=== PATIENT | male | born 1935 | race Hispanic/Latino ===

== ENCOUNTER 2016-07-23 08:30 | Outpatient (CLI) | payer MEDICARE ==
--- NOTE | 2016-07-23 12:33 | Cat Scan Report ---
CT ABDOMEN AND PELVIS WITHOUT CONTRAST INDICATION: Prostate cancer. COMPARISON: 10/12/2014 FINDINGS: Abdomen and pelvis CT performed following oral contrast only. LUNG BASES: Small pericardial fluid/thickening anteriorly measuring 1.2 cm AP again noted, axial image 16, series 2. Small coronary calcification. Mild left more than right basilar scarring. ABDOMEN: Please note that sensitivity to detect small visceral lesions is limited due to the absence of intravenous contrast. Minimal dependent density in the gallbladder may again represent slight cholelithiasis/sludge. Liver, spleen, pancreas, adrenals, IVC and opacified colon within normal limits. Nonopacified small bowel evaluation limited, though grossly nonobstructive. No ascites or size significant adenopathy. Small infrarenal abdominal aortic focal ectasia/fusiform borderline aneurysm estimated at 3 cm AP x 2.5 cm transverse again seen as on axial image 165, series 2. Kidneys again nonhydronephrotic bilaterally with mild perinephric stranding. Few small calcifications bilaterally may be vascular, though not excluded for a 4 mm calculus on the left, axial image 112. Numerous bilateral renal lesions again noted, some hyperdense/hemorrhagic cysts while others hypodense/simple cysts. The largest of these lesions in the left mid to lower renal aspect again approximately 2 cm as on axial images 147 and 156. Also, a 1.3 cm left upper renal cortical now hyperdense/hemorrhagic cyst on image 106 appeared hypodense previously. PELVIS: Approximately 4 cm AP x 5.6 cm transverse prostate creates an impression at the bladder base and maybe correlated for clinically and with PSA. Otherwise grossly unremarkable non-opacified urinary bladder and seminal vesicles. Mild distal descending colon and proximal sigmoid diverticulosis. Mild to moderate rectosigmoid stool. No free fluid or significant adenopathy. Small, approximately 1.8 cm diameter fat containing bilateral inguinal hernias. Approximately 7 mm anterolisthesis of L5 over S1 with bilateral L5 pars defects and severe L5-S1 disc narrowing with vacuum phenomenon. Demineralized bones. Additional spinal degenerative spurring, greatest lower thoracic. Bilateral SI joint degenerative bridging with partial joint space obliteration on the right as well. CONCLUSION: 1. No acute CT abnormality or significant interval change with bilateral renal cysts again noted, some with hemorrhagic transformation. 2. Various other findings, including cholelithiasis, left renal calcification, infrarenal aortic ectasia/borderline aneurysm, diverticulosis, enlarged prostate and small pericardial effusion, amongst others, as described. Thank you for the opportunity to participate in this patient's care.
--- NOTE | 2016-07-23 14:14 | Nuclear Medicine Report ---
BONE SCAN: History: Prostate cancer: Comparison: CT abdomen pelvis without contrast performed the same day. After injection of isotope, gamma camera imaging of the bony system was done. There is a normal uptake of isotope throughout the bony structures without areas of significantly increased or decreased uptake. Normal uptake in the urinary system is seen. IMPRESSION: Negative bone scan.
== END 2016-07-23 08:31 | disposition home or self-care (01) ==
LOC: NM 08:30
PROVIDERS: ATTEND Urology
DX: C61 Malignant neoplasm of prostate (principal); I77.811 Abdominal aortic ectasia; N28.89 Other specified disorders of kidney and ureter; N20.0 Calculus of kidney; K57.30 Diverticulosis of large intestine without perforation or abscess without bleeding; K40.90 Unilateral inguinal hernia, without obstruction or gangrene, not specified as recurrent; N40.0 Benign prostatic hyperplasia without lower urinary tract symptoms; I31.3 Pericardial effusion (noninflammatory)
CPT/HCPCS: 74176; 78306; A9503

== ENCOUNTER 2016-09-06 11:44 | Day surgery (SDC) | payer MEDICARE ==
--- NOTE | 2016-08-28 10:58 | Admit Criteria Form ---
Admission Criteria Documentation: AMBULATORY SURGERY EXCEPTION CRITERIA Ambulatory Surgery Exception Criteria ( Place 'X' for any and all applicable criteria): Surgery or procedure performed on ambulatory basis may require inpatient stay for[A] ANY ONE of the following(1)(2)(3)(4)(5)(6)(7)(8)(9): [X] I. A preoperative situation, condition, or finding that warrants inpatient stay as indicated by ANY ONE of the following: [X] a) Inpatient care needed because of severity of a disease or condition rather than the surgery (eg, severe cardiac or respiratory disease, severe infection) (15) (16 ) (17) (18) [] b) Emergent procedure (eg, angioplasty for acute ischemia)(19) [] c) Complex surgical approach or situation as indicated by ANY ONE of the following(3): [] i) Open approach needed instead of usual endoscopic, transcatheter, or other less invasive procedure [] ii) Difficult approach because of previous operation [] iii) Airway monitoring required after open neck procedures(20)(21) [] iv) Large mass requiring unusually extensive dissection [] v) Additional complicating feature requiring inpatient care (eg, drain management)(22(23): [] d) Major surgery in a pt with high anesthetic risk as indicated by ANY ONE of the following (2)(3)(5)(7)(8): [] i) ASA risk class III or higher (severe systemic disease impairing function) [D] [] ii) Advanced age (eg, older than 85 years)(14)(24) [] iii) Symptomatic heart failure(25) [] iv) Symptomatic asthma or COPD(8)(21) [] v) Morbid obesity with hemodynamic or respiratory problems(20)( 21)(26)(27) [] vi) Obstructive sleep apnea(20)(21) [] vii) Former premature infants who are younger than 60 weeks [] viii) High risk for severe postoperative abnormalities (eg, severe postoperative hypocalcemia after parathyroidectomy for severe hyperparathyroidism)(27)( 28) [] ix) Unstable angina(25) [] e) Drug-related risk requiring inpatient stay as indicated by ANY ONE of the following(5)(10)(14)(32)(33) [] i) Procedure requires discontinuing drugs or other therapy (eg , antiarrhythmic medication, antiseizure medication), which necessitates inpatient observation or treatment.(18)(31) [] ii) Major surgery and high risk drug use as indicated by ANY ONE of the following: [] 1) Active abuse of cocaine or similar drug [] 2) Monoamine oxidase inhibitor use [] 3) Other drug identified as posing risk [] f) Inadequate outpatient care situation as indicated by ANY ONE of the following(5)(10)(14)(32)(33) [] i) Patient lives remote from medical facility and procedure has urgent complication potential, and temporary nearby residence cannot be arranged [] ii) Patient will have postprocedure incapacitation and inadequate assistance at home, or alternative level of care cannot be arranged. [] iii) Patient will have long general anesthesia or procedure side effect resolution time, and competent person to stay with patient on first postoperative night at home or alternative level of care cannot be arranged. []iv) Other inadequate outpatient situation that cannot be handled by other means [] II. A perioperative event, condition, or finding that warrants inpatient stay as indicated by ANY ONE of the following (1)(2)(3): [] a) Inadequate physiologic recovery: cardiovascular, respiratory, or hemodynamic status not normal or near preoperative baseline(18) [] b) Hemodynamic instability [] c) Patient not alert with near normal or baseline mental status [] d) Temperature not normal or as expected and not appropriate for outpatient treatment of condition [] e) Ambulatory or appropriate activity level status not yet achieved post procedure [E](34)(35)(36) [] f) Operative site not appropriate (eg, unexpected or excessive drainage or bleeding) [] g) Postoperative effects not resolved or adequately managed (eg, significant pain or vomiting not appropriate for outpatient or next level of care)(10)(12) [] h) Complicating features requiring inpatient care as indicated by ANY ONE of the following(37): [] i) Severe complications of procedure (eg, bowel injury, airway compromise, vascular injury,severe hemorrhage) [] ii) Extensive (eg, dissection far beyond usual scope of procedure ) or prolonged (eg, 120 minutes beyond usual) surgery needed requiring inpatient postoperative care [] iii) Conversion to an open or complex procedure that requires inpatient care (eg, open vs laparoscopic cholecystectomy, abdominal vs vaginal hysterectomy)(38) [] iv) Comorbid condition or test result identified during or post procedure that requires inpatient care (7) [] v) Malignant hyperthermia(30) [] vi) Other complicating feature requiring inpatient care(22)(23) Inpatient stay may be needed until ALL of the following are present (1)(2)(3)(4) (5)(6)(10)(14)(33)(40): []a) Physiologic recovery: cardiovascular, respiratory, and hemodynamic status normal or near preoperative baseline []b) Hemodynamic stability []c) Patient alert, with near normal or baseline mental status []d) Temperature appropriate: patient afebrile or temperature appropriate for outpt treatment of condition []e) Activity level appropriate: ambulatory or appropriate activity level post procedure []f) Operative site appropriate as indicated by ALL of the following: []i) Site dry or with expected drainage []ii) Any blood noted is as expected for procedure. []g) Postoperative effects resolved or managed as indicated by ALL of the following: []i) Pain management appropriate for outpatient (or next level of) care(10) []ii) Minimal nausea and vomiting: if present, successfully treated with oral medication(12) []iii) Headache, dizziness, or drowsiness (if present) are mild. []h) Voiding status acceptable as indicated by ANY ONE of the following: []i) Voiding spontaneously []ii) No voiding but instructions given for follow-up in 6 to 8 hours []iii) Urinary catheter in place, and instructions given for follow-up []i) Complicating features requiring inpatient care manageable at a lower level of care(37) []j) Comorbid conditions manageable at a lower level of care(37) The original [employer] content created by [employer] has been revised. The portions of the content which have been revised are identified through the use of italic text or in bold, and [employer] has neither reviewed nor approved the modified material. All other unmodified content is copyright [employer]. Please see references footnoted in the original [employer] edition 2016
[2016-09-05 09:53] LABS: Basophils % (Auto) 0.5 % (0.0-1.8); Eosinophils % (Auto) 1.5 % (0.0-4.3); Hematocrit 43.7 % (35.5-45.6); Hemoglobin 14.1 gm/dl (11.8-15.2); Mean Corpuscular HGB Conc 32 % (32-34); Mean Corpuscular Hemoglobin 30 pg (28-32); Mean Corpuscular Volume 92 fl (84-94); Platelet Count 292 K/mm3 (140-440); Red Blood Count 4.73 M/mm3 (3.65-5.03); Red Cell Distribution Width 14.5 % (13.2-15.2); White Blood Count 9.5 K/mm3 (4.5-11.0)
[2016-09-05 10:10] LABS: Alanine Aminotransferase 14 units/L (7-56); Albumin 3.3 g/dL (3.9-5); Albumin/Globulin Ratio 1.1 %; Alkaline Phosphatase 86 units/L (35-129); Anion Gap 16 mmol/L; Blood Urea Nitrogen 12 mg/dL (9-20); Calcium 8.7 mg/dL (8.4-10.2); Carbon Dioxide 27 mmol/L (22-30); Chloride 104.1 mmol/L (98-107); Glucose 85 mg/dL (75-100); Potassium 5.2 mmol/L (3.6-5.0); Sodium 142 mmol/L (137-145); Total Protein 6.2 g/dL (6.3-8.2)
--- NOTE | 2016-09-05 10:14 | Anesthesia Consultation ---
Anesthesia Consult and Med Hx Date of service: 09/05/16 - Airway Anesthetic Teeth Evaluation: Poor (bottom), Edentulous (upper) ROM Head & Neck: Adequate Mental/Hyoid Distance: Adequate Mallampati Class: Class II Intubation Access Assessment: Probably Good - Pulmonary Exam CTA: No (expiratory rhonchii) - Cardiac Exam Anesthetic Concerns: cardiac clearence - Pre-Operative Health Status ASA Pre-Surgery Classification: ASA3 Proposed Anesthetic Plan: General, Spinal - Pre-Anesthesia Comment Pre-Anesthesia Comments: off of coumadin for 7 days, stopped 08/29. - Pulmonary Hx Smoking: Yes (1 1/2PPD X 50YRS-NOW RARE SMOKER) Hx Asthma: Yes (ORDERED TO WEAR O2 AT ALL TIMES,BUT DOES NOT) SOB: Yes (USES INHALERS) COPD: Yes ( DAILY STEROIDS) Hx Pneumonia: Yes (HX) - Cardiovascular System Hx Hypertension: Yes (2008) Hx Cardia Arrhythmia: Yes (Afib) - Central Nervous System Hx Psychiatric Problems: No - Other Systems Hx Cancer: Yes (prostate)
[2016-09-05 10:17] LABS: INR 0.98 (0.87-1.13)
[2016-09-05 10:18] LABS: Partial Thromboplastin Time 25.2 Sec. (24.2-36.6)
[~2016-09-06 11:44] MED LIST: ANCEF/STERILE WATER 2 GM/20 ML 2 GM/20 ML SYRINGE IV NR; NACL 0.9% 1000 ML 1,000 ML IV SCH; PEPCID PO NR
[2016-09-06] MEDS ORDERED: NEO SYNEPHRINE/NS Syringe(OR USE) IV ONE (12:00)
[2016-09-06] MEDS ORDERED: NACL BACTERIOSTATIC INFILTRATI ONE (12:27)
[2016-09-06] MEDS ORDERED: DIPRIVAN 10 MG/ML IV ONE (12:35)
[2016-09-06] MEDS ORDERED: DILAUDID ONE (12:35)
[2016-09-06] MEDS ORDERED: ZOFRAN ONE (12:35)
[2016-09-06] MEDS ORDERED: XYLOCAINE MPF 2% ONE (12:35)
[2016-09-06] MEDS ORDERED: DECADRON ONE (12:35)
[2016-09-06] MEDS ORDERED: PROAIR IH NR (12:46)
[2016-09-06] MEDS ORDERED: DILAUDID IV PRN (12:47)
[2016-09-06] MEDS ORDERED: ZOFRAN IV PRN (12:47)
--- NOTE | 2016-09-06 12:47 | Anesthesia Day of Surgery ---
Anesthesia Day of Surgery - Day of Surgery Patient Examined: Yes Patient H&P Reviewed: Yes Patient is NPO: Yes Cardiac Clearance: Yes
[2016-09-06] MEDS ORDERED: ANCEF/STERILE WATER 2 GM/20 ML IV NR (14:00)
--- NOTE | 2016-09-06 15:06 | Post Operative Note ---
Date of procedure: 09/06/16 Pre-op diagnosis: CAP Post-op diagnosis: same Findings: as above 42 grams Procedure: cysto cryoablation prostate Anesthesia: GETA Surgeon: MARTA ABDULLAHI Estimated blood loss: minimal Pathology: none Condition: stable Disposition: PACU
--- NOTE | 2016-09-06 15:08 | Discharge Summary ---
Short Stay Discharge Plan Activity: other (no straining ) Weight Bearing Status: Full Weight Bearing Diet: low fat, low cholesterol, low salt, diabetic Wound: other (ice packs to perineun in RR and 24 hrs po ) Durable Medical Equipment Needed Upon Discharge: other (harp care ) Follow up with: MILADY LOUIS MD [Primary Care Provider] - 7 Days MARTA ABDULLAHI MD [Staff Physician] - 7 Days
[2016-09-06] MEDS ORDERED: NACL 0.9% 1000 ML 1,000 ML ONE (15:13)
[2016-09-06] MEDS ORDERED: LASIX ONE (15:20)
[2016-09-06] MEDS ORDERED: WATER FOR IRRIG STERILE IR ONE (15:30)
[2016-09-06] MEDS ORDERED: NACL 0.9% IR ONE (15:30)
[2016-09-06] MEDS ORDERED: VERSED ONE (15:42)
--- NOTE | 2016-09-06 16:12 | Operative Report ---
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 PROCEDURE: Cystoscopy, cryosurgical ablation of prostate. SURGEON: Ramos Enciso MD ANESTHESIA: General. FINDINGS: This is a gentleman with low volume disease. He has positive biopsies at right lateral apex and some atypical cells on the left, now presents for ablation. All risks and complications were discussed. DESCRIPTION OF PROCEDURE: The patient was brought to the operating room and placed on the operating table. Following induction of anesthesia, placed in lithotomy position, prepped and draped in usual sterile fashion. De Jesus catheter was easily placed. The ultrasound grading probe was placed and excellent visualization was obtained. The prostate measured approximately 40 grams. At this point, the probing calculated was placed and we used six probes, the probes were checked. At this point, we measured the gland and measured the length and posteriorly with approximately ____ 3.3 cm, but anteriorly and mid gland was approximately 4 cm. Probes 1 and 2 were placed. Denonvilliers fascia and external sphincter was placed in excellent position. Probes 5 and 6 and 3 and 4 were placed without difficulty. The patient tolerated the procedure well. An excellent freeze was accomplished, we had excellent ice. Denonvilliers was dropped approximately 20. Thaw was accomplished and second freeze was obtained after we rechecked probe. The patient tolerated the procedure well. Second freeze was accomplished. Second thaw was accomplished. The patient tolerated the procedure well. A 20-25 minutes warming was kept in place and a #20 coude catheter was placed. It should be noted that prior to the freeze, we did flexible cystoscopy, we placed the rigid wire and under direct vision with ultrasound, we placed a warmer which was checked throughout the procedure, which was intact. The patient tolerated the procedure well. No complications. De Jesus catheter was draining brought to recovery in stable condition. JOB# [id number] ALINA/YOGESH
[2016-09-06 18:02] VITALS: BP 106/62
[2016-09-06] MEDS ORDERED: TRIPLE ANTIBIOTIC TP SCH (22:00)
== END 2016-09-06 17:57 | disposition home or self-care (01) ==
LOC: OR 11:44
PROVIDERS: ATTEND Urology
DX: C61 Malignant neoplasm of prostate (principal); F17.210 Nicotine dependence, cigarettes, uncomplicated; J44.9 Chronic obstructive pulmonary disease, unspecified; I48.2 Chronic atrial fibrillation; E78.5 Hyperlipidemia, unspecified; I10 Essential (primary) hypertension; Z79.899 Other long term (current) drug therapy; Z87.01 Personal history of pneumonia (recurrent); Z98.890 Other specified postprocedural states
CPT/HCPCS: 36415; 55873; 80053; 85025; 85610; 85730; A4217; C2618; J0690; J1100; J1170; J1940; J2250; J2370; J2405; J2704; J7030

== ENCOUNTER 2017-07-18 18:22 | Inpatient (IN) | payer MEDICARE ==
[2017-07-18 18:51] LABS: Basophils % (Auto) 0.1 % (0.0-1.8); Eosinophils % (Auto) 0.1 % (0.0-4.3); Hematocrit 39.1 % (35.5-45.6); Hemoglobin 12.3 gm/dl (11.8-15.2); Lymphocytes # (Auto) 1.4 K/mm3 (1.2-5.4); Lymphocytes % (Auto) 7.1 % (13.4-35.0); Mean Corpuscular HGB Conc 31 % (32-34); Mean Corpuscular Hemoglobin 28 pg (28-32); Mean Corpuscular Volume 90 fl (84-94); Monocytes # (Auto) 1.2 K/mm3 (0.0-0.8); Platelet Count 562 K/mm3 (140-440); Red Blood Count 4.36 M/mm3 (3.65-5.03)
[2017-07-18 19:06] LABS: BUN/Creatinine Ratio 24; Blood Urea Nitrogen 24 mg/dL (9-20); Calcium 8.8 mg/dL (8.4-10.2); Hemolysis Index 3
[2017-07-18] MEDS ORDERED: PROVENTIL IH ONE (21:22)
[2017-07-18] MEDS ORDERED: ATROVENT IH ONE (21:22)
--- NOTE | 2017-07-18 21:28 | Emergency Department Report ---
HPI - General Chief Complaint: Dyspnea/Respdistress Time Seen by Provider: 07/18/17 21:11 - HPI HPI: Room 25 The patient is an 82-year-old male presenting with a chief complaint of pneumonia. The patient states he's had shortness of breath and productive cough for years but over the past 2 weeks she's had a poor appetite. The patient states he went to see his primary physician and had a chest x-ray performed today which revealed a pneumonia. Patient was subsequently sent to the ED for further management. Patient denies any history of fever nausea or vomiting. Location: [See above] Duration: [See above] Quality: [See above] Severity: Moderate Modifying factors: [see above] Context: [see above] Mode of transportation: [not driving] ED Past Medical Hx - Past Medical History Hx Hypertension: Yes (2008) Hx GERD: Yes Hx Arthritis: Yes Hx Asthma: Yes (ORDERED TO WEAR O2 AT ALL TIMES,BUT DOES NOT) Hx COPD: Yes ( DAILY STEROIDS) - Family History Family history: no significant - Social History Smoking Status: Current Some Day Smoker - Medications Home Medications: Home Medications Medication Instructions Recorded Confirmed Last Taken Type Advair Diskus 250-50 mcg 2 puff IH BID 01/10/15 08/30/16 01/09/15 History Diltiazem ER 240 mg PO DAILY 01/10/15 09/06/16 09/06/16 10:30 History Omeprazole 20 mg PO DAILY 01/10/15 09/06/16 09/06/16 10:30 History Pravastatin 20 mg PO DAILY 01/10/15 09/06/16 09/06/16 10:30 History ProAir HFA Inhaler 1 puff IH Q4HR PRN 01/10/15 09/06/16 09/05/16 22:00 History Warfarin [Coumadin] 5 mg PO DAILY 02/23/15 09/06/16 08/28/16 History Albuterol Sulfate [Albuterol 0.63% 1 dose INHALATION DAILY 08/30/16 09/06/16 21:00 History NEBS] Brimonidine/Timolol 0.2-0.5% 1 drops OU BID 08/30/16 09/06/16 09/05/16 History [Combigan 0.2-0.5%] Prednisone [predniSONE] 2.5 mg PO Q48HR 08/30/16 09/06/16 09/06/16 10:30 History Tiotropium [Spiriva] 1 puff IH DAILY 08/30/16 09/06/16 09/05/16 History predniSONE [Deltasone] 5 mg PO Q48HR 08/30/16 09/06/16 09/05/16 History ED Review of Systems ROS: Stated complaint: SHORT OF BREATH Other details as noted in HPI Constitutional: denies: fever Respiratory: cough, shortness of breath Gastrointestinal: other (anorexia). denies: nausea, vomiting Physical Exam - Physical Exam Vital Signs: Vital Signs 07/18/17 18:26 Temperature 99.3 F Pulse Rate 99 H Respiratory 30 H Rate Blood Pressure 155/136 O2 Sat by Pulse 90 Oximetry Physical Exam: GENERAL: The patient is well-developed well-nourished male sitting on stretcher not appearing to be in acute distress. [] HEENT: Normocephalic. Atraumatic. Extraocular motions are intact. Patient has moist mucous membranes. NECK: Supple. Trachea midline CHEST/LUNGS: Occasional rhonchi and rare faint expiratory wheeze. There is no respiratory distress noted. HEART/CARDIOVASCULAR: Regular. There is no tachycardia. There is no gallop rub or murmur. ABDOMEN: Abdomen is soft, nontender. Patient has normal bowel sounds. There is no abdominal distention. SKIN: There is no rash. There is no diaphoresis. NEURO: The patient is awake, alert, and oriented. The patient is cooperative. The patient has normal speech MUSCULOSKELETAL:There is no evidence of acute injury. ED Course Vital Signs 07/18/17 18:26 Temperature 99.3 F Pulse Rate 99 H Respiratory 30 H Rate Blood Pressure 155/136 O2 Sat by Pulse 90 Oximetry ED Medical Decision Making - Lab Data Result diagrams: 07/18/17 18:32 07/18/17 18:32 Laboratory Tests 07/18/17 07/18/17 18:32 18:32 WBC 20.0 H RBC 4.36 Hgb 12.3 Hct 39.1 MCV 90 MCH 28 MCHC 31 L RDW 16.0 H Plt Count 562 H Lymph % (Auto) 7.1 L [place] % (Auto) 6.0 Eos % (Auto) 0.1 Baso % (Auto) 0.1 Lymph # 1.4 [place] # 1.2 H Eos # 0.0 Baso # 0.0 Seg Neutrophils % 86.7 H Seg Neutrophils # 17.4 H Sodium 143 Potassium 5.5 H Chloride 103.7 Carbon Dioxide 27 Anion Gap 18 BUN 24 H Creatinine 1.0 Estimated GFR > 60 BUN/Creatinine Ratio 24 Glucose 91 Calcium 8.8 - Radiology Data Radiology results: image reviewed (chest x-ray) interpreted by me: Chest x-ray-right middle lobe consolidation - Differential Diagnosis pneumonia Critical care attestation.: If time is entered above; I have spent that time in minutes in the direct care of this critically ill patient, excluding procedure time. ED Disposition Clinical Impression: Pneumonia, Cough, Shortness of breath Disposition: DC-09 OP ADMIT IP TO THIS HOSP Is pt being admited?: Yes Does the pt Need Aspirin: Yes Condition: Fair Instructions: Bacterial Pneumonia (ED) Time of Disposition: 21:30 (hospitalist paged (Dr Ledbetter))
[2017-07-18] MEDS ORDERED: ZOSYN/NS 4.5GM/100ML 4.5 GM/100 ML VIAL IV ONE (22:00)
[2017-07-18] MEDS ORDERED: KIONEX PO STA (22:36)
[2017-07-18] MEDS ORDERED: TYLENOL PO PRN (22:37)
[2017-07-18] MEDS ORDERED: NACL 0.9% 1000 ML 2,000 ML IV ONE (22:42)
[2017-07-18] MEDS ORDERED: NACL 0.9% 1000 ML 2,000 ML ONE (22:59)
[2017-07-18] MEDS ORDERED: KIONEX ONE (23:07)
--- NOTE | 2017-07-18 23:40 | XRay Report ---
FINAL REPORT PROCEDURE: XR CHEST ROUTINE 2V TECHNIQUE: PA and lateral chest radiographs were obtained. CPT 56216 HISTORY: Shortness of breath COMPARISON: No prior studies are available for comparison. FINDINGS: Heart: Normal. Mediastinum/Vessels: Normal. Lungs/Pleural space: There right lower lobe infiltrates. There is a small right pleural effusion. There is no pneumothorax. Lungs are well-expanded.. Bony thorax: No acute osseous abnormality. Other: IMPRESSION: Heart size is normal. There right lower lobe infiltrates. There is a small right pleural effusion. There is no pneumothorax. Lungs are well-expanded..
--- NOTE | 2017-07-19 01:08 | History and Physical Report ---
History of Present Illness Date of examination: 07/18/17 Date of admission: 07/18/17 22:37 Chief complaint: Shortness of breath History of present illness: Patient is a 82-year-old male with history of COPD and hypertension who presented to the ED on account of 3 weeks history of shortness of breath with mild exertion. He has associated cough productive of whitish sputum and poor appetite. He denies chest pain, fever, chills, headaches, nausea, vomiting , leg swelling, orthopnea, PND, dizziness, syncope or loss of consciousness. He reported that he had a chest x-ray done at his primary care physician office and he was told that he has pneumonia. Past History Past Medical History: COPD, hypertension Past Surgical History: Other (prostate surgery) Social history: smoking (for more than 50 years and currently smokes. He denies alcohol or illicit drug use) Family history: other (reviewed and noncontributory) Medications and Allergies Allergies Allergy/AdvReac Type Severity Reaction Status Date / Time No Known Allergies Allergy Verified 09/06/16 09:37 Home Medications Medication Instructions Recorded Confirmed Last Taken Type Advair Diskus 250-50 mcg 2 puff IH BID 01/10/15 08/30/16 01/09/15 History Diltiazem ER 240 mg PO DAILY 01/10/15 09/06/16 09/06/16 10:30 History Omeprazole 20 mg PO DAILY 01/10/15 09/06/16 09/06/16 10:30 History Pravastatin 20 mg PO DAILY 01/10/15 09/06/16 09/06/16 10:30 History ProAir HFA Inhaler 1 puff IH Q4HR PRN 01/10/15 09/06/16 09/05/16 22:00 History Warfarin [Coumadin] 5 mg PO DAILY 02/23/15 09/06/16 08/28/16 History Albuterol Sulfate [Albuterol 0.63% 1 dose INHALATION DAILY 08/30/16 09/06/16 21:00 History NEBS] Brimonidine/Timolol 0.2-0.5% 1 drops OU BID 08/30/16 09/06/16 09/05/16 History [Combigan 0.2-0.5%] Prednisone [predniSONE] 2.5 mg PO Q48HR 08/30/16 09/06/16 09/06/16 10:30 History Tiotropium [Spiriva] 1 puff IH DAILY 08/30/16 09/06/16 09/05/16 History predniSONE [Deltasone] 5 mg PO Q48HR 08/30/16 09/06/16 09/05/16 History Active Meds: Active Medications Acetaminophen (Tylenol) 650 mg PO Q6H PRN PRN Reason: Pain, Mild (1-3) Albuterol/Ipratropium (Duoneb *Not For Prn Use*) 1 ampul IH TIDRT MARTINEZ Enoxaparin Sodium (Lovenox) 40 mg SUB-Q QDAY MARTINEZ Sodium Chloride (Nacl 0.45% 1000 Ml) 1,000 mls @ 100 mls/hr IV DIRECT MARTINEZ Azithromycin 500 mg/ Sodium (Chloride) 250 mls @ 250 mls/hr IV Q24HR MARTINEZ Ceftriaxone Sodium 2 gm/ (Sodium Chloride) 20 mls @ 2 mls/min IV Q24HR MARTINEZ Review of Systems All systems: negative (except as documented in the HPI, all other systems were reviewed and negative) Exam - Constitutional Vitals: Temp Pulse Resp BP Pulse Ox 99.3 F 95 H 16 132/72 96 07/18/17 18:26 07/18/17 22:23 07/18/17 22:23 07/18/17 22:23 07/18/17 22:23 General appearance: Present: no acute distress - EENT Eyes: Present: PERRL, EOM intact ENT: hearing intact, clear oral mucosa - Neck Neck: Present: supple, normal ROM - Respiratory Respiratory effort: normal Respiratory: bilateral: diminished, rhonchi - Cardiovascular Rhythm: regular Heart Sounds: Present: S1 & S2. Absent: rub, click - Extremities Extremities: pulses symmetrical Extremity abnormal: edema (in bilateral lower extremities) - Abdominal General gastrointestinal: Present: soft, non-tender, non-distended, normal bowel sounds - Integumentary Integumentary: Present: clear, warm, dry - Musculoskeletal Musculoskeletal: generalized weakness - Psychiatric Psychiatric: appropriate mood/affect, intact judgment & insight - Neurologic Neurologic: CNII-XII intact, moves all extremities Results - Labs CBC & Chem 7: 07/18/17 18:32 07/18/17 18:32 Labs: Laboratory Last Values WBC 20.0 K/mm3 (4.5-11.0) H 07/18/17 18: RBC 4.36 M/mm3 (3.65-5.03) 07/18/17: Hgb 12.3 gm/dl (11.8-15.2) 07/18/17: Hct 39.1 % (35.5-45.6) 07/18/17: MCV 90 fl (84-94) 07/18/17: MCH 28 pg (28-32) 07/18/17: MCHC 31 % (32-34) L 07/18/17: RDW 16.0 % (13.2-15.2) H 07/18/17: Plt Count 562 K/mm3 (140-440) H 07/18/17: Lymph % (Auto) 7.1 % (13.4-35.0) L 07/18/17: [place] % (Auto) 6.0 % (0.0-7.3) 07/18/17: Eos % (Auto) 0.1 % (0.0-4.3) 07/18/17: Baso % (Auto) 0.1 % (0.0-1.8) 07/18/17: Lymph # 1.4 K/mm3 (1.2-5.4) 07/18/17: [place] # 1.2 K/mm3 (0.0-0.8) H 07/18/17: Eos # 0.0 K/mm3 (0.0-0.4) 07/18/17: Baso # 0.0 K/mm3 (0.0-0.1) 07/18/17: Seg Neutrophils % 86.7 % (40.0-70.0) H 07/18/17: Seg Neutrophils # 17.4 K/mm3 (1.8-7.7) H 07/18/17 18: Sodium 143 mmol/L (137-145) 07/18/17: Potassium 5.5 mmol/L (3.6-5.0) H 07/18/17: Chloride 103.7 mmol/L (98-107) 07/18/17 18:32 Carbon Dioxide 27 mmol/L (22-30) 07/18/17 18:32 Anion Gap 18 mmol/L 07/18/17 18:32 BUN 24 mg/dL (9-20) H 07/18/17 18:32 Creatinine 1.0 mg/dL (0.8-1.5) 07/18/17 18:32 Estimated GFR > 60 ml/min 07/18/17 18:32 BUN/Creatinine Ratio 24 % 07/18/17 18:32 Glucose 91 mg/dL (75-100) 07/18/17 18:32 Lactic Acid 1.70 mmol/L (0.7-2.0) 07/18/17 22:54 Calcium 8.8 mg/dL (8.4-10.2) 07/18/17 18:32 NT-Pro-B Natriuret Pep 2371 pg/mL (0-900) H 07/18/17 22:54 Assessment and Plan Assessment and plan: Sepsis secondary to right lower lobe pneumonia (CAP) -Patient will be placed on sepsis protocol -WIll follow up blood and sputum culture results Hyperkalemia -Patient received IV fluid boluses and Kayexalate -Will monitor potassium level Bilateral leg edema with elevated BNP level -Will order echocardiogram to assess EF of valvular function History of COPD -No acute exacerbation -Patient will be placed on nebulizer breathing treatments Hypertension -He will be placed on when necessary antihypertensive Tobacco abuse -Patient counseled on cessation Prophylaxis -DVT prophylaxis with Lovenox 38 minutes spent coordinating care
[2017-07-19] MEDS ORDERED: APRESOLINE IV PRN (01:13)
[2017-07-19 06:57] LABS: Basophils % (Auto) 0.2 % (0.0-1.8); Eosinophils % (Auto) 0.2 % (0.0-4.3); Hemoglobin 11.3 gm/dl (11.8-15.2); Lymphocytes # (Auto) 1.3 K/mm3 (1.2-5.4); Lymphocytes % (Auto) 11.7 % (13.4-35.0); Mean Corpuscular HGB Conc 33 % (32-34); Mean Corpuscular Hemoglobin 29 pg (28-32); Mean Corpuscular Volume 88 fl (84-94); Monocytes # (Auto) 0.8 K/mm3 (0.0-0.8); Monocytes % (Auto) 7.7 % (0.0-7.3); Platelet Count 490 K/mm3 (140-440); Red Blood Count 3.86 M/mm3 (3.65-5.03); Red Cell Distribution Width 15.8 % (13.2-15.2)
[2017-07-19 07:13] LABS: Alanine Aminotransferase 11 units/L (7-56); Albumin 2.7 g/dL (3.9-5); BUN/Creatinine Ratio 26; Blood Urea Nitrogen 23 mg/dL (9-20); Calcium 7.8 mg/dL (8.4-10.2); Hemolysis Index 3
[2017-07-19] MEDS ORDERED: PROAIR IH PRN (08:32)
--- NOTE | 2017-07-19 08:34 | Progress Note ---
Assessment and Plan Assessment and plan: Sepsis. Etiology is secondary to right lower lobe pneumonia (CAP) -Continue sepsis protocol -Will follow up blood and sputum culture results Right lower lobe pneumonia. -Follow serial chest x-ray. -Continue antibiotics. Hyperkalemia -Patient received IV fluid boluses and Kayexalate -Will monitor potassium level Bilateral leg edema with elevated BNP level -Follow up echocardiogram to assess EF of valvular function acute exacerbation of COPD -Continue nebulizer breathing treatments -Add systemic steroids. Hypertension -Continue home antihypertensive medication Tobacco abuse -Patient counseled on cessation Coagulopathy Patient cannot recall why he is on Coumadin. Attempt to contact family. Prophylaxis -DVT prophylaxis with Lovenox An additional 30 minutes was spent coordinating care after admission. History Interval history: No new issues since admission Hospitalist Physical - Constitutional Vitals: Temp Pulse Resp BP Pulse Ox 98.8 F 85 20 111/78 96 07/19/17 02:55 07/19/17 02:55 07/19/17 02:55 07/19/17 02:55 07/19/17 02:55 General appearance: Present: no acute distress - EENT Eyes: Present: PERRL, EOM intact ENT: hearing intact, clear oral mucosa, dentition normal - Neck Neck: Present: supple, normal ROM - Respiratory Respiratory effort: normal Respiratory: bilateral: CTA - Cardiovascular Rhythm: regular Heart Sounds: Present: S1 & S2. Absent: gallop, rub - Extremities Extremities: no ischemia, No edema, Full ROM - Abdominal General gastrointestinal: soft, non-tender, non-distended, normal bowel sounds - Integumentary Integumentary: Present: clear, warm, dry - Neurologic Neurologic: CNII-XII intact, moves all extremities Results - Labs CBC & Chem 7: 07/19/17 06:06 07/19/17 06:06 Labs: Laboratory Last Values WBC 10.7 K/mm3 (4.5-11.0) 07/19/17 06:06 RBC 3.86 M/mm3 (3.65-5.03) 07/19/17 06:06 Hgb 11.3 gm/dl (11.8-15.2) L 07/19/17 06:06 Hct 34.0 % (35.5-45.6) L 07/19/17 06:06 MCV 88 fl (84-94) 07/19/17 06:06 MCH 29 pg (28-32) 07/19/17 06:06 MCHC 33 % (32-34) 07/19/17 06:06 RDW 15.8 % (13.2-15.2) H 07/19/17 06:06 Plt Count 490 K/mm3 (140-440) H 07/19/17 06:06 Lymph % (Auto) 11.7 % (13.4-35.0) L 07/19/17 06:06 [place] % (Auto) 7.7 % (0.0-7.3) H 07/19/17 06:06 Eos % (Auto) 0.2 % (0.0-4.3) 07/19/17 06:06 Baso % (Auto) 0.2 % (0.0-1.8) 07/19/17 06:06 Lymph # 1.3 K/mm3 (1.2-5.4) 07/19/17 06:06 [place] # 0.8 K/mm3 (0.0-0.8) 07/19/17 06:06 Eos # 0.0 K/mm3 (0.0-0.4) 07/19/17 06:06 Baso # 0.0 K/mm3 (0.0-0.1) 07/19/17 06:06 Seg Neutrophils % 80.2 % (40.0-70.0) H 07/19/17 06:06 Seg Neutrophils # 8.6 K/mm3 (1.8-7.7) H 07/19/17 06:06 Sodium 144 mmol/L (137-145) 07/19/17 06:06 Potassium 5.3 mmol/L (3.6-5.0) H 07/19/17 06:06 Chloride 105.2 mmol/L (98-107) 07/19/17 06:06 Carbon Dioxide 30 mmol/L (22-30) 07/19/17 06:06 Anion Gap 14 mmol/L 07/19/17 06:06 BUN 23 mg/dL (9-20) H 07/19/17 06:06 Creatinine 0.9 mg/dL (0.8-1.5) 07/19/17 06:06 Estimated GFR > 60 ml/min 07/19/17 06:06 BUN/Creatinine Ratio 26 % 07/19/17 06:06 Glucose 80 mg/dL (75-100) 07/19/17 06:06 Lactic Acid 1.70 mmol/L (0.7-2.0) 07/18/17 22:54 Calcium 7.8 mg/dL (8.4-10.2) L 07/19/17 06:06 Total Bilirubin 0.20 mg/dL (0.1-1.2) 07/19/17 06:06 AST 9 units/L (5-40) 07/19/17 06:06 ALT 11 units/L (7-56) 07/19/17 06:06 Alkaline Phosphatase 71 units/L (35-129) 07/19/17 06:06 NT-Pro-B Natriuret Pep 2371 pg/mL (0-900) H 07/18/17 22:54 Total Protein 5.1 g/dL (6.3-8.2) L 07/19/17 06:06 Albumin 2.7 g/dL (3.9-5) L 07/19/17 06:06 Albumin/Globulin Ratio 1.1 % 07/19/17 06:06
[2017-07-19] MEDS: NACL 0.45% 1000 ML 1,000 ML IV SCH ×2 (08:45→21:33)
[2017-07-19] MEDS: BROVANA NEBU IH SCH ×2 (09:00→19:35)
[2017-07-19] MEDS ORDERED: PROVENTIL IH PRN (09:16)
[2017-07-19] MEDS: DUONEB *Not for PRN Use IH SCH ×3 (09:33→19:35)
[2017-07-19] MEDS: PULMICORT IH SCH ×2 (09:33→19:35)
[2017-07-19] MEDS: CARDIZEM CD PO SCH (09:52)
[2017-07-19] MEDS: LOVENOX SUB-Q SCH (09:52)
[2017-07-19] MEDS: PROTONIX PO SCH (09:53)
[2017-07-19] MEDS: ZITHROMAX 500 MG in NACL 0.9% 250ML 250 ML IV SCH (09:59)
[2017-07-19] MEDS ORDERED: ADVAIR IH SCH (10:00)
[2017-07-19] MEDS ORDERED: DILTIAZEM 240 MG PO SCH (10:00)
[2017-07-19] MEDS ORDERED: ROCEPHIN/NS 2 GM/100 ML 2 GM/100 ML BAG IV SCH (10:00)
[2017-07-19] MEDS ORDERED: NON-FORMULARY (Omeprazole 20 MG) PO SCH (10:00)
[2017-07-19] MEDS ORDERED: ALBUTEROL SULFATE INHALATION SCH (10:00)
[2017-07-19] MEDS ORDERED: NON-FORMULARY (Pravastatin 20 MG) PO SCH (10:00)
[2017-07-19] MEDS: cefTRIAXone 2 GM in NACL 0.9% 20 ML IV SCH (11:06)
[2017-07-19] MEDS: SPIRIVA IH SCH (11:18)
[2017-07-19] MEDS: PROVENTIL IH SCH (19:46)
[2017-07-19] MEDS: PRAVACHOL PO SCH (21:33)
[2017-07-20] MEDS: NACL 0.45% 1000 ML 1,000 ML IV SCH ×2 (06:17→18:37)
[2017-07-20 06:39] LABS: Hematocrit 36.1 % (35.5-45.6); Hemoglobin 11.6 gm/dl (11.8-15.2); Mean Corpuscular HGB Conc 32 % (32-34); Mean Corpuscular Hemoglobin 29 pg (28-32); Mean Corpuscular Volume 89 fl (84-94); Platelet Count 502 K/mm3 (140-440); Red Blood Count 4.08 M/mm3 (3.65-5.03); Red Cell Distribution Width 15.7 % (13.2-15.2)
[2017-07-20 07:06] LABS: BUN/Creatinine Ratio 26; Blood Urea Nitrogen 18 mg/dL (9-20); Calcium 8.1 mg/dL (8.4-10.2); Hemolysis Index 14
[2017-07-20 07:29] LABS: Basophils % (Manual) 0 % (0.0-1.8); Eosinophils % (Manual) 0 % (0.0-4.3); Total Cells Counted 100
[2017-07-20 07:30] LABS: Anisocytosis 1+; Platelet Estimate Consistent w Auto
--- NOTE | 2017-07-20 08:54 | Progress Note ---
Assessment and Plan Assessment and plan: Sepsis. Etiology is secondary to right lower lobe pneumonia (CAP) -Continue sepsis protocol -Will follow up blood and sputum culture results Right lower lobe pneumonia. -Follow serial chest x-ray. -Continue antibiotics. Hyperkalemia -Resolved Bilateral leg edema with elevated BNP level -Follow up echocardiogram to assess EF of valvular function acute exacerbation of COPD -Continue nebulizer breathing treatments -Continue systemic steroids. Wean as tolerated Hypertension -Continue home antihypertensive medication Tobacco abuse -Patient counseled on cessation Prophylaxis -DVT prophylaxis with Lovenox Disposition -Anticipate discharge in next 1-2 days if stable. History Interval history: Patient still complains of mild shortness of breath. No new events overnight. Hospitalist Physical - Constitutional Vitals: Temp Pulse Resp BP Pulse Ox 98.5 F 94 H 18 128/78 93 07/20/17 04:45 07/20/17 04:00 07/20/17 04:45 07/20/17 04:45 07/19/17 21:13 General appearance: Present: no acute distress - EENT Eyes: Present: PERRL, EOM intact ENT: hearing intact, clear oral mucosa, dentition normal - Neck Neck: Present: supple, normal ROM - Respiratory Respiratory effort: normal Respiratory: bilateral: diminished, wheezing - Cardiovascular Rhythm: regular Heart Sounds: Present: S1 & S2. Absent: gallop, rub - Extremities Extremities: no ischemia, No edema, Full ROM - Abdominal General gastrointestinal: soft, non-tender, non-distended, normal bowel sounds - Integumentary Integumentary: Present: clear, warm, dry - Neurologic Neurologic: CNII-XII intact, moves all extremities Results - Labs CBC & Chem 7: 07/20/17 05:31 07/20/17 05:31 Labs: Laboratory Last Values WBC 9.1 K/mm3 (4.5-11.0) 07/20/17 05:31 RBC 4.08 M/mm3 (3.65-5.03) 07/20/17 05:31 Hgb 11.6 gm/dl (11.8-15.2) L 07/20/17 05:31 Hct 36.1 % (35.5-45.6) 07/20/17 05:31 MCV 89 fl (84-94) 07/20/17 05:31 MCH 29 pg (28-32) 07/20/17 05:31 MCHC 32 % (32-34) 07/20/17 05:31 RDW 15.7 % (13.2-15.2) H 07/20/17 05:31 Plt Count 502 K/mm3 (140-440) H 07/20/17 05:31 Lymph % (Auto) 11.7 % (13.4-35.0) L 07/19/17 06:06 [place] % (Auto) 7.7 % (0.0-7.3) H 07/19/17 06:06 Eos % (Auto) 0.2 % (0.0-4.3) 07/19/17 06:06 Baso % (Auto) 0.2 % (0.0-1.8) 07/19/17 06:06 Lymph # 1.3 K/mm3 (1.2-5.4) 07/19/17 06:06 [place] # 0.8 K/mm3 (0.0-0.8) 07/19/17 06:06 Eos # 0.0 K/mm3 (0.0-0.4) 07/19/17 06:06 Baso # 0.0 K/mm3 (0.0-0.1) 07/19/17 06:06 Add Manual Diff Complete 07/20/17 05:31 Total Counted 100 07/20/17 05:31 Seg Neutrophils % Shredding Machine Operator 07/20/17 05:31 Seg Neuts % (Manual) 94.0 % (40.0-70.0) H 07/20/17 05:31 Band Neutrophils % 0 % 07/20/17 05:31 Lymphocytes % (Manual) 4.0 % (13.4-35.0) L 07/20/17 05:31 Reactive Lymphs % (Man) 0 % 07/20/17 05:31 Monocytes % (Manual) 2.0 % (0.0-7.3) 07/20/17 05:31 Eosinophils % (Manual) 0 % (0.0-4.3) 07/20/17 05:31 Basophils % (Manual) 0 % (0.0-1.8) 07/20/17 05:31 Metamyelocytes % 0 % 07/20/17 05:31 Myelocytes % 0 % 07/20/17 05:31 Promyelocytes % 0 % 07/20/17 05:31 Blast Cells % 0 % 07/20/17 05:31 Nucleated RBC % Not Reportable 07/20/17 05:31 Seg Neutrophils # 8.6 K/mm3 (1.8-7.7) H 07/19/17 06:06 Seg Neutrophils # Man 8.6 K/mm3 (1.8-7.7) H 07/20/17 05:31 Band Neutrophils # 0.0 K/mm3 07/20/17 05:31 Lymphocytes # (Manual) 0.4 K/mm3 (1.2-5.4) L 07/20/17 05:31 Abs React Lymphs (Man) 0.0 K/mm3 07/20/17 05:31 Monocytes # (Manual) 0.2 K/mm3 (0.0-0.8) 07/20/17 05:31 Eosinophils # (Manual) 0.0 K/mm3 (0.0-0.4) 07/20/17 05:31 Basophils # (Manual) 0.0 K/mm3 (0.0-0.1) 07/20/17 05:31 Metamyelocytes # 0.0 K/mm3 07/20/17 05:31 Myelocytes # 0.0 K/mm3 07/20/17 05:31 Promyelocytes # 0.0 K/mm3 07/20/17 05:31 Blast Cells # 0.0 K/mm3 07/20/17 05:31 WBC Morphology Not Reportable 07/20/17 05:31 Hypersegmented Neuts Not Reportable 07/20/17 05:31 Hyposegmented Neuts Not Reportable 07/20/17 05:31 Hypogranular Neuts Not Reportable 07/20/17 05:31 Smudge Cells Not Reportable 07/20/17 05:31 Toxic Granulation Not Reportable 07/20/17 05:31 Toxic Vacuolation Not Reportable 07/20/17 05:31 Dohle Bodies Not Reportable 07/20/17 05:31 Pelger-Huet Anomaly Not Reportable 07/20/17 05:31 [place]al[place] Rods Not Reportable 07/20/17 05:31 Platelet Estimate Consistent w auto 07/20/17 05:31 Clumped Platelets Not Reportable 07/20/17 05:31 Plt Clumps, EDTA Not Reportable 07/20/17 05:31 Large Platelets Not Reportable 07/20/17 05:31 Giant Platelets Not Reportable 07/20/17 05:31 Platelet Satelliting Not Reportable 07/20/17 05:31 Plt Morphology Comment Not Reportable 07/20/17 05:31 RBC Morphology Not Reportable 07/20/17 05:31 Dimorphic RBCs Not Reportable 07/20/17 05:31 Polychromasia Not Reportable 07/20/17 05:31 Hypochromasia Not Reportable 07/20/17 05:31 Poikilocytosis Not Reportable 07/20/17 05:31 Anisocytosis 1+ 07/20/17 05:31 Microcytosis Not Reportable 07/20/17 05:31 Macrocytosis Not Reportable 07/20/17 05:31 Spherocytes Not Reportable 07/20/17 05:31 Pappenheimer Bodies Not Reportable 07/20/17 05:31 Sickle Cells Not Reportable 07/20/17 05:31 Target Cells Not Reportable 07/20/17 05:31 Tear Drop Cells Not Reportable 07/20/17 05:31 Ovalocytes Not Reportable 07/20/17 05:31 Helmet Cells Not Reportable 07/20/17 05:31 [place] Bodies Not Reportable 07/20/17 05:31 [place] Rings Not Reportable 07/20/17 05:31 [place] Cells Not Reportable 07/20/17 05:31 Bite Cells Not Reportable 07/20/17 05:31 Crenated Cell Not Reportable 07/20/17 05:31 Elliptocytes 1+ 07/20/17 05:31 Acanthocytes (Spur) Not Reportable 07/20/17 05:31 Rouleaux Not Reportable 07/20/17 05:31 Hemoglobin C Crystals Not Reportable 07/20/17 05:31 Schistocytes Not Reportable 07/20/17 05:31 Malaria parasites Not Reportable 07/20/17 05:31 Fredi Bodies Not Reportable 07/20/17 05:31 Hem Pathologist Commnt No 07/20/17 05:31 Sodium 141 mmol/L (137-145) 07/20/17 05:31 Potassium 4.9 mmol/L (3.6-5.0) 07/20/17 05:31 Chloride 101.9 mmol/L (98-107) 07/20/17 05:31 Carbon Dioxide 26 mmol/L (22-30) 07/20/17 05:31 Anion Gap 18 mmol/L 07/20/17 05:31 BUN 18 mg/dL (9-20) 07/20/17 05:31 Creatinine 0.7 mg/dL (0.8-1.5) L 07/20/17 05:31 Estimated GFR > 60 ml/min 07/20/17 05:31 BUN/Creatinine Ratio 26 % 07/20/17 05:31 Glucose 180 mg/dL (75-100) H 07/20/17 05:31 Lactic Acid 1.70 mmol/L (0.7-2.0) 07/18/17 22:54 Calcium 8.1 mg/dL (8.4-10.2) L 07/20/17 05:31 Total Bilirubin 0.20 mg/dL (0.1-1.2) 07/19/17 06:06 AST 9 units/L (5-40) 07/19/17 06:06 ALT 11 units/L (7-56) 07/19/17 06:06 Alkaline Phosphatase 71 units/L (35-129) 07/19/17 06:06 NT-Pro-B Natriuret Pep 2371 pg/mL (0-900) H 07/18/17 22:54 Total Protein 5.1 g/dL (6.3-8.2) L 07/19/17 06:06 Albumin 2.7 g/dL (3.9-5) L 07/19/17 06:06 Albumin/Globulin Ratio 1.1 % 07/19/17 06:06
[2017-07-20] MEDS: PULMICORT IH SCH ×2 (08:56→20:18)
[2017-07-20] MEDS: BROVANA NEBU IH SCH ×2 (08:56→20:18)
[2017-07-20] MEDS: DUONEB *Not for PRN Use IH SCH ×4 (08:56→20:17)
[2017-07-20] MEDS: SPIRIVA IH SCH (10:25)
[2017-07-20 10:41] LABS: INR 0.95 (0.87-1.13)
[2017-07-20] MEDS: CARDIZEM CD PO SCH (10:57)
[2017-07-20] MEDS: LOVENOX SUB-Q SCH (10:58)
[2017-07-20] MEDS: PROTONIX PO SCH (10:58)
[2017-07-20] MEDS: ZITHROMAX 500 MG in NACL 0.9% 250ML 250 ML IV SCH (18:36)
[2017-07-20] MEDS: cefTRIAXone 2 GM in NACL 0.9% 20 ML IV SCH (18:36)
[2017-07-20] MEDS: PRAVACHOL PO SCH (21:18)
[2017-07-21] MEDS: NACL 0.45% 1000 ML 1,000 ML IV SCH ×2 (06:26→18:24)
[2017-07-21 08:12] LABS: Hematocrit 36.1 % (35.5-45.6); Hemoglobin 11.9 gm/dl (11.8-15.2); Mean Corpuscular HGB Conc 33 % (32-34); Mean Corpuscular Hemoglobin 29 pg (28-32); Mean Corpuscular Volume 88 fl (84-94); Platelet Count 534 K/mm3 (140-440); Red Blood Count 4.11 M/mm3 (3.65-5.03); Red Cell Distribution Width 15.4 % (13.2-15.2)
[2017-07-21] MEDS: PULMICORT IH SCH ×2 (08:22→22:26)
[2017-07-21] MEDS: BROVANA NEBU IH SCH ×2 (08:23→22:25)
[2017-07-21] MEDS: DUONEB *Not for PRN Use IH SCH ×3 (08:23→22:25)
[2017-07-21 08:33] LABS: BUN/Creatinine Ratio 29; Blood Urea Nitrogen 23 mg/dL (9-20); Calcium 8.3 mg/dL (8.4-10.2); Hemolysis Index 7
--- NOTE | 2017-07-21 08:41 | Progress Note ---
Assessment and Plan Sepsis. Etiology is secondary to right lower lobe pneumonia (CAP) -Continue sepsis protocol -negative blood and sputum culture results so far Right lower lobe pneumonia. -Follow serial chest x-ray. -Continue antibiotics. - Bilateral leg edema with elevated BNP level -ECHO showed EF of 55-60% with nl ventricular function acute exacerbation of COPD -Continue nebulizer breathing treatments -Continue systemic steroids. Wean as tolerated Hypertension -Continue home antihypertensive medication Tobacco abuse -Patient counseled on cessation Prophylaxis -DVT prophylaxis with Lovenox Disposition -Anticipate discharge in next 1-2 days if stable. Subjective Date of service: 07/21/17 Principal diagnosis: Sepsis with pnuemonia Interval history: Pt seen and examined. No new complaint denies any fever Objective - Constitutional Vitals: Vital Signs - 12hr 07/20/17 07/20/17 07/21/17 20:36 22:00 08:18 Pulse Rate 95 H Pulse Rate [ 100 H Bilateral Throughout] Respiratory 20 Rate Respiratory 18 Rate [Bilateral Throughout] O2 Sat by Pulse Oximetry 07/21/17 07/21/17 08:24 08:27 Pulse Rate Pulse Rate [ 98 H Bilateral Throughout] Respiratory Rate Respiratory 18 Rate [Bilateral Throughout] O2 Sat by Pulse 94 Oximetry General appearance: Present: no acute distress, well-nourished - EENT Eyes: PERRL, EOM intact - Neck Neck: supple, normal ROM - Respiratory Respiratory effort: normal Respiratory: bilateral: diminished - Cardiovascular Rhythm: regular Heart Sounds: Present: S1 & S2. Absent: gallop, rub Extremities: pulses intact, No edema, normal color, Full ROM - Gastrointestinal General gastrointestinal: Present: soft, non-tender, non-distended, normal bowel sounds - Integumentary Integumentary: clear, warm, dry - Musculoskeletal Musculoskeletal: 1, strength equal bilaterally - Neurologic Neurologic: moves all extremities - Psychiatric Psychiatric: memory intact, appropriate mood/affect, intact judgment & insight - Labs CBC & Chem 7: 07/21/17 07:26 07/21/17 07:26 Labs: Abnormal lab results 07/21/17 07/21/17 Range/Units 07:26 07:26 WBC 13.0 H (4.5-11.0) K/mm3 RDW 15.4 H (13.2-15.2) % Plt Count 534 H (140-440) K/mm3 BUN 23 H (9-20) mg/dL Glucose 130 H (75-100) mg/dL Calcium 8.3 L (8.4-10.2) mg/dL
[2017-07-21 09:08] LABS: Basophils % (Manual) 0 % (0.0-1.8); Eosinophils % (Manual) 0 % (0.0-4.3); Total Cells Counted 100
[2017-07-21 09:09] LABS: Anisocytosis 1+; Platelet Estimate Cons; Poikilocytosis 1+
[2017-07-21] MEDS: SPIRIVA IH SCH (09:19)
[2017-07-21] MEDS: LOVENOX SUB-Q SCH (10:06)
[2017-07-21] MEDS: cefTRIAXone 2 GM in NACL 0.9% 20 ML IV SCH (10:06)
[2017-07-21] MEDS: PROTONIX PO SCH (10:06)
[2017-07-21] MEDS: ZITHROMAX 500 MG in NACL 0.9% 250ML 250 ML IV SCH (10:07)
[2017-07-21] MEDS: CARDIZEM CD PO SCH (10:08)
[2017-07-21] MEDS: PRAVACHOL PO SCH (22:13)
[2017-07-22] MEDS: NACL 0.45% 1000 ML 1,000 ML IV SCH (05:46)
[2017-07-22] MEDS: PULMICORT IH SCH (07:28)
[2017-07-22] MEDS: BROVANA NEBU IH SCH (07:28)
[2017-07-22] MEDS: DUONEB *Not for PRN Use IH SCH ×2 (07:28→13:02)
[2017-07-22] MEDS: SPIRIVA IH SCH (09:52)
[2017-07-22] MEDS ORDERED: ZITHROMAX PO SCH (10:00)
[2017-07-22] MEDS: LOVENOX SUB-Q SCH (10:19)
[2017-07-22] MEDS: PROTONIX PO SCH (10:19)
[2017-07-22] MEDS: cefTRIAXone 2 GM in NACL 0.9% 20 ML IV SCH (10:19)
[2017-07-22] MEDS: CARDIZEM CD PO SCH (10:20)
--- NOTE | 2017-07-22 14:20 | Discharge Summary ---
Providers - Providers Date of Admission: 07/18/17 22:37 Date of discharge: 07/22/17 Attending physician: ANGELA MUNOZ MD Primary care physician: MILADY LOUIS Hospitalization Reason for admission: Pneumonia, COPD exacerbation, chronic A. fib Condition: Fair Pertinent studies: Chest x-ray right lower lobe infiltrates Hospital course: Patient is a 82-year-old male with history of A. fib on eliquis, COPD on home oxygen, and hypertension who presented to the ED on account of 3 weeks history of shortness of breath with mild exertion. He has associated cough productive of whitish sputum and poor appetite. He denies chest pain, fever, chills, headaches, nausea, vomiting, leg swelling, orthopnea, PND, dizziness, syncope or loss of consciousness. He reported that he had a chest x-ray done at his primary care physician office and he was told that he has pneumonia. His emergency department chest x-ray was done and shows lower lobe infiltrates. Patient was admitted to the floor and was treated with IV antibiotics, oxygen support, nebulizer, Solu-Medrol. Patient showed marked improvement and patient wants to go home. I have called his and discussed about his medications and oxygen. Patient stated he doesn't have insurance but I have discussed about the pritchett and patient said she will afford that and case management is going to give him good rx coupons. per his he has all his medications at home. Patient has been off warfarin and currently on eliquis and said has enough supply of medications at home. Patient does home oxygen. Patient was discharged with PO antibiotic and tapering dose of prednisone. Patient is hemodynamically stable at the time of discharge. Disposition: DC-01 TO HOME OR SELFCARE Time spent for discharge: 31 minutes - Discharge Diagnoses (1) Pneumonia Status: Acute (2) Advanced COPD Status: Chronic Comment: stable with home regimen (3) Atrial fibrillation Status: Chronic Qualifiers: Atrial fibrillation type: chronic Qualified Code(s): I48.2 - Chronic atrial fibrillation Comment: stable rate with therapeutic INR Core Measure Documentation - Palliative Care Palliative Care/ Comfort Measures: Not Applicable - Core Measures Any of the following diagnoses?: none Exam - Physical Exam Narrative exam: Not in cardiopulmonary distress. The patient appeared well nourished and normally developed. Vital signs as documented. Head exam is unremarkable. No scleral icterus . Neck is without jugular venous distension, thyromegaly, or carotid bruits. Lungs are clear to auscultation. Cardiac exam reveals regular rate and Rhythm. First and second heart sounds normal. No murmurs, rubs or gallops. Abdominal exam reveals normal bowel sounds, no masses, no organomegaly and no aortic enlargement. Extremities are nonedematous and both femoral and pedal pulses are normal. FUNERAL HOME ATTENDANT: Alert and oriented 3. No focal weakness. - Constitutional Vitals: Temp Pulse Resp BP Pulse Ox 98.9 F 88 18 143/78 100 07/22/17 08:02 07/22/17 13:10 07/22/17 13:10 07/22/17 10:20 07/22/17 10:00 Plan Activity: no restrictions Weight Bearing Status: Full Weight Bearing Diet: low cholesterol Additional Instructions: please follow @ [facility] in 1-2 weeks Follow up with: PRIMARY CARE, [Referring] - 7 Days Prescriptions: Levofloxacin [Levaquin] 750 mg PO QDAY #7 tablet Prednisone [predniSONE 10 mg (6-Day Pack, 21 Tabs)] 10 mg PO .TAPER #1 tab.ds.pk
[2017-07-22 14:28] VITALS: BP 130/78
== END 2017-07-22 15:25 | disposition home or self-care (01) | DRG 871 ==
LOC: ED 18:22 → EDBD 22:37 → 2B-ACE 22:37
PROVIDERS: ADMIT Internal Medicine; ATTEND Internal Medicine
DX: A41.9 Sepsis, unspecified organism (principal); J18.1 Lobar pneumonia, unspecified organism; J44.1 Chronic obstructive pulmonary disease with (acute) exacerbation; J44.0 Chronic obstructive pulmonary disease with (acute) lower respiratory infection; M19.90 Unspecified osteoarthritis, unspecified site; K21.9 Gastro-esophageal reflux disease without esophagitis; I48.2 Chronic atrial fibrillation; E87.5 Hyperkalemia; I10 Essential (primary) hypertension; F17.200 Nicotine dependence, unspecified, uncomplicated; Z79.01 Long term (current) use of anticoagulants; Z79.51 Long term (current) use of inhaled steroids; Z71.6 Tobacco abuse counseling
CPT/HCPCS: 36415; 71046; 80048; 80053; 82140; 83880; 85007; 85025; 85610; 87040; 87070; 87205; 93306; 94640; 94760; 96374; A9270-GY; J0456; J0696; J1650; J2543; J2930; J7030; J7050